=== PATIENT | male | born 1945 | race Caucasian/White ===

== ENCOUNTER 2018-03-11 21:24 | Inpatient (IN) ==
[2018-03-11] MEDS ORDERED: ORPHENADRINE 60 MG/2 ML VIAL IV STA (21:55)
[2018-03-11] MEDS ORDERED: ONDANSETRON 4 MG/2 ML VIAL IV STA (21:55)
[2018-03-11] MEDS ORDERED: ALBUTEROL/IPRATROPIUM 3 ML NEB RESP TX STA (21:55)
[2018-03-11] MEDS ORDERED: KETOROLAC 30 MG/1 ML VIAL IV STA (21:55)
[2018-03-11] MEDS ORDERED: methylPREDNISolone SOD SUC 125 MG/2 ML VIAL IV STA (21:55)
[2018-03-11 22:11] LABS: Basophils % 0.3 % (0.0-0.8); Eosinophils # 0.3 10*3/uL (0.0-0.87); Eosinophils % 4.3 % (0.00-10.9); Hematocrit 38.4 VOL% (42.0-52.0); Hemoglobin 13.3 GM/DL (14.0-18.0); Immature Granulocytes % 0.6 %; Immature Granulocytes Absolute 0.04 #; Lymphocytes # 1.3 10*3/uL (1.4-4.0); Lymphocytes % 18.4 % (21.2-54.2); Mean Corpuscular HGB Conc 34.6 GM/DL (32-36); Mean Corpuscular Hemoglobin 32 PG (27-34); Mean Corpuscular Volume 91.4 FL (87-102); Mean Platelet Volume 11.1 FL (9.6-12.0); Monocytes # 0.5 10*3/uL (0.11-0.8); Monocytes % 6.6 % (1.7-12.7); Neutrophils # 4.9 10*3/uL (1.4-7.4); Neutrophils % 69.8 % (38.7-73.9); Platelet Count 178 T/CUMM (130-400)
[2018-03-11 22:22] LABS: PT Patient Result 10.1 SECS
[2018-03-11 22:31] LABS: Apearance,Urine CLEAR (Clear); Bilirubin,Urine Negative (Negative); Blood, Urine Negative (Negative); Glucose,Urine (UA) Negative (Negative); Ketones,Urine Negative (Negative); Mucus,Urine Occasional /LPF (Occasional); Nitrite,Urine Negative (Negative); Protein,Urine Negative; Urine Color Yellow (Yellow); Urine Specific Gravity 1.013 (1.001-1.035); Urine Urobilinogen < 2.0 EU/DL (0.2-1.0)
[2018-03-11 22:39] LABS: Alanine Aminotransferase 18 U/L (16-61); Albumin 3.5 G/DL (3.4-5.0); Alkaline Phosphatase 69 U/L (45-117); Aspartate Amino Transferase 13 U/L (0-37); Blood Urea Nitrogen 16 MG/DL (7-18); Calcium 8.5 MG/DL (8.5-10.1); Glucose 128 MG/DL (74-106); Osmolality,Calculated 285.1 MOS/KG (273-304); Potassium 3.7 MMOL/L (3.5-5.1); Sodium 142 MMOL/L (136-145); Total Protein 6.7 G/DL (6.4-8.3); Troponin I < 0.015 NG/ML (0.00-0.045)
[2018-03-11] MEDS ORDERED: ENOXAPARIN 100 MG/ML SYRINGE SUBCUT STA (23:01)
[2018-03-12] MEDS ORDERED: HYDROmorphone 2 MG/1 ML VIAL ONE (01:15)
[2018-03-12] MEDS ORDERED: MIDAZOLAM 2 MG/2 ML VIAL ONE (01:15)
[2018-03-12] MEDS ORDERED: ALTEPLASE 2 MG VIAL ONE (01:16)
[2018-03-12] MEDS ORDERED: HEPARIN/NACL 0.9% 2 UNITS/ML 500 ML IV ONE (01:21)
[2018-03-12] MEDS ORDERED: ALTEPLASE 6 MG in SODIUM CHLORIDE 0.9% 120 ML IV SCH ×2 (01:49→02:03)
[2018-03-12] MEDS ORDERED: ALTEPLASE IV ONE ×4 (02:07→02:30)
[2018-03-12] MEDS ORDERED: SODIUM CHLORIDE 0.9% 1,000 ML IV SCH ×2 (02:30)
[2018-03-12] MEDS ORDERED: LORazepam 2 MG/1 ML VIAL IV PRN (02:42)
[2018-03-12 03:37] LABS: Apearance,Urine CLEAR (Clear); Bilirubin,Urine Negative (Negative); Blood, Urine Negative (Negative); Glucose,Urine (UA) Negative (Negative); Ketones,Urine Negative (Negative); Nitrite,Urine Negative (Negative); Protein,Urine Negative; Urine Color Yellow (Yellow); Urine Specific Gravity 1.053 (1.001-1.035); Urine Urobilinogen < 2.0 EU/DL (0.2-1.0); WBC,Urine <1 /HPF (0-6)
[2018-03-12] MEDS ORDERED: MORPHINE 4 MG/1 ML VIAL IV PRN (04:12)
[2018-03-12] MEDS ORDERED: ONDANSETRON 4 MG/2 ML VIAL IV PRN (04:12)
[2018-03-12] MEDS ORDERED: ALBUTEROL 2.5 MG/3 ML NEB RESP TX PRN (04:12)
[2018-03-12] MEDS ORDERED: ACETAMINOPHEN 325 MG TABLET PO PRN (04:12)
[2018-03-12 05:42] LABS: PT Patient Result 10.7 SECS
[2018-03-12 05:44] LABS: PT Patient Result 10.7 SECS; Partial Thromboplastin Time 31.3 SECS (0-40)
[2018-03-12 09:12] LABS: Bilirubin,Total 0.6 MG/DL (0.2-1.0); Calcium 8.1 MG/DL (8.5-10.1); Osmolality,Calculated 280.3 MOS/KG (273-304); Potassium 3.8 MMOL/L (3.5-5.1); Total Protein 5.9 G/DL (6.4-8.3)
[2018-03-12] MEDS: FINASTERIDE 5 MG TABLET PO SCH (11:30)
[2018-03-12] MEDS: LOSARTAN 50 MG TABLET PO SCH (11:31)
[2018-03-12] MEDS: ASPIRIN 325 MG TABLET PO SCH (11:31)
[2018-03-12] MEDS: APIXABAN 5 MG TABLET PO SCH ×2 (15:06→21:24)
[2018-03-12 15:07] LABS: Partial Thromboplastin Time 27.1 SECS (0-40)
[2018-03-12 17:03] LABS: PT Patient Result 10.1 SECS
[2018-03-13 03:25] LABS: Basophils % 0.3 % (0.0-0.8); Eosinophils # 0.3 10*3/uL (0.0-0.87); Eosinophils % 5.1 % (0.00-10.9); Hematocrit 35.5 VOL% (42.0-52.0); Hemoglobin 11.6 GM/DL (14.0-18.0); Immature Granulocytes % 0.7 %; Immature Granulocytes Absolute 0.05 #; Lymphocytes # 1.1 10*3/uL (1.4-4.0); Lymphocytes % 16.4 % (21.2-54.2); Mean Corpuscular HGB Conc 32.7 GM/DL (32-36); Mean Corpuscular Hemoglobin 31 PG (27-34); Mean Corpuscular Volume 95.2 FL (87-102); Mean Platelet Volume 10.9 FL (9.6-12.0); Monocytes # 0.5 10*3/uL (0.11-0.8); Monocytes % 7.5 % (1.7-12.7); Neutrophils # 4.7 10*3/uL (1.4-7.4); Platelet Count 155 T/CUMM (130-400); Red Blood Count 3.73 MC/CUMM (3.8-5.5); Red Cell Distribution Width 12.3 % (9.3-17.3); White Blood Count 6.7 T/CUMM (4-12)
[2018-03-13 03:36] LABS: Partial Thromboplastin Time 30.2 SECS (0-40)
[2018-03-13 03:45] LABS: Calcium 8.5 MG/DL (8.5-10.1); Osmolality,Calculated 278.4 MOS/KG (273-304); Potassium 4.2 MMOL/L (3.5-5.1)
[2018-03-13 06:08] VITALS: BP 164/81
[2018-03-13] MEDS: LOSARTAN 50 MG TABLET PO SCH (08:00)
[2018-03-13] MEDS: FINASTERIDE 5 MG TABLET PO SCH (08:00)
[2018-03-13] MEDS: ASPIRIN 325 MG TABLET PO SCH (08:05)
[2018-03-13] MEDS: APIXABAN 5 MG TABLET PO SCH (08:05)
[2018-03-13] MEDS ORDERED: PANTOPRAZOLE 20 MG TABLET PO SCH (10:00)
[2018-03-13] MEDS ORDERED: MULTIVITAMIN (CENTRUM) TABLET PO SCH (10:00)
[2018-03-13] MEDS ORDERED: MONTELUKAST GRANULES 4 MG PACK PO SCH (21:00)
[2018-03-13] MEDS ORDERED: DOXAZOSIN 1 MG TABLET PO SCH (21:00)
[2018-03-13] MEDS ORDERED: BUDESONIDE/FORMOTEROL 80-4.5 INHALER 6.9 GM INH SCH (21:00)
[2018-03-14] MEDS ORDERED: CETIRIZINE 5 MG TABLET PO SCH (09:00)
[2018-03-14] MEDS ORDERED: POTASSIUM CHLORIDE 20 MEQ TABLET PO SCH (09:00)
== END 2018-03-13 11:29 | disposition home or self-care (01) | DRG 176 ==
LOC: N.ED 21:24 → N.EDINP 03-12 00:37 → N.CC 03-12 00:59 → N.CL 03-12 01:06 → N.CC 03-12 01:12 → SUATTDRO 03-12 02:36
PROVIDERS: ADMIT Internal Medicine; ATTEND Internal Medicine Geriatric Medicine

== ENCOUNTER 2019-03-08 12:26 | Observation (INO) ==
[2019-03-08 13:35] LABS: Basophils % 0.5 % (0.0-0.8); Eosinophils # 0.1 10*3/uL (0.0-0.87); Eosinophils % 1.4 % (0.00-10.9); Hematocrit 42.7 VOL% (42.0-52.0); Hemoglobin 14.5 GM/DL (14.0-18.0); Immature Granulocytes % 0.5 %; Immature Granulocytes Absolute 0.03 #; Lymphocytes # 0.9 10*3/uL (1.4-4.0); Lymphocytes % 14.6 % (21.2-54.2); Mean Corpuscular Volume 95.7 FL (87-102); Mean Platelet Volume 10.8 FL (9.6-12.0); Monocytes % 7.8 % (1.7-12.7); Neutrophils % 75.2 % (38.7-73.9); Platelet Count 154 T/CUMM (130-400); Red Blood Count 4.46 MC/CUMM (3.8-5.5); Red Cell Distribution Width 12.7 % (9.3-17.3); White Blood Count 6.4 T/CUMM (4-12)
[2019-03-08 13:47] LABS: PT Patient Result 10.5 SECS (9.6-12.2)
[2019-03-08 14:05] LABS: Albumin 4.1 G/DL (3.4-5.0); Bilirubin,Total 0.8 MG/DL (0.2-1.0); Calcium 9.9 MG/DL (8.5-10.1); Total Protein 6.7 G/DL (6.4-8.3)
[2019-03-08] MEDS ORDERED: DILTIAZEM 50 MG/10 ML VIAL IV STA (14:21)
[2019-03-08] MEDS ORDERED: DILTIAZEM INJ 100 MG in SODIUM CHLORIDE 0.9% 100 ML IV SCH (14:30)
[2019-03-08] MEDS: dilTIAZem Drip 125 MG/125 ML PREMIX IV SCH (16:00)
[2019-03-08] MEDS ORDERED: ONDANSETRON 4 MG/2 ML VIAL IV PRN (17:35)
[2019-03-08] MEDS ORDERED: ACETAMINOPHEN 325 MG TABLET PO PRN (17:35)
[2019-03-08] MEDS ORDERED: SODIUM CHLORIDE 0.9% 1,000 ML IV SCH (18:00)
[2019-03-08 19:03] LABS: Troponin I < 0.015 NG/ML (0.00-0.045)
[2019-03-08] MEDS ORDERED: DOXAZOSIN 1 MG TABLET PO SCH (21:00)
[2019-03-08] MEDS ORDERED: DILTIAZEM 90 MG TABLET PO SCH (21:00)
[2019-03-08] MEDS ORDERED: MONTELUKAST 10 MG TABLET PO SCH (21:00)
[2019-03-08] MEDS: TIMOLOL 0.25% OPH SOLN 5 ML BOTTLE BOTH EYES SCH (21:31)
[2019-03-08] MEDS: APIXABAN 5 MG TABLET PO SCH (21:31)
[2019-03-08] MEDS: MAGNESIUM CHLORIDE 64 MG TABLET PO SCH (21:32)
[2019-03-08] MEDS: BUDESONIDE/FORMOTEROL 160-4.5 INHALER 6 GM INH SCH (22:45)
[2019-03-08 22:53] LABS: Apearance,Urine CLEAR (Clear); Bilirubin,Urine Negative (Negative); Blood, Urine Negative (Negative); Glucose,Urine (UA) Negative (Negative); Ketones,Urine 20 mg/dL (Negative); Mucus,Urine Occasional /LPF (Occasional); Nitrite,Urine Negative (Negative); Protein,Urine Negative; RBC,Urine 8 /HPF (0-4); Urine Color Yellow (Yellow); Urine Specific Gravity 1.016 (1.001-1.035); Urine Urobilinogen < 2.0 EU/DL (0.2-1.0); WBC,Urine 1 /HPF (0-6)
[2019-03-08 23:07] LABS: Barbiturates Screen,Urine Negative (Negative); Benzodiazepines Screen,Urine Negative (Negative); Cannabinoid Screen,Urine Negative (Negative); Opiate Screen,Urine Negative (Negative); Phencyclidine Screen,Urine Negative (Negative)
[2019-03-09] MEDS: dilTIAZem Drip 125 MG/125 ML PREMIX IV SCH (00:15)
[2019-03-09 00:37] LABS: Troponin I < 0.015 NG/ML (0.00-0.045)
[2019-03-09 06:05] LABS: Basophils % 0.6 % (0.0-0.8); Eosinophils # 0.3 10*3/uL (0.0-0.87); Eosinophils % 3.7 % (0.00-10.9); Hematocrit 42.2 VOL% (42.0-52.0); Immature Granulocytes % 0.4 %; Immature Granulocytes Absolute 0.03 #; Lymphocytes # 1.6 10*3/uL (1.4-4.0); Lymphocytes % 22.5 % (21.2-54.2); Mean Corpuscular HGB Conc 33.2 GM/DL (32-36); Mean Corpuscular Volume 97.2 FL (87-102); Mean Platelet Volume 11.6 FL (9.6-12.0); Monocytes % 8.7 % (1.7-12.7); Neutrophils % 64.1 % (38.7-73.9); Platelet Count 154 T/CUMM (130-400); Red Blood Count 4.34 MC/CUMM (3.8-5.5); Red Cell Distribution Width 12.8 % (9.3-17.3)
[2019-03-09 06:44] LABS: Calcium 9.3 MG/DL (8.5-10.1); Osmolality,Calculated 286.8 MOS/KG (273-304); Risk Ratio 3.7
[2019-03-09] MEDS: MAGNESIUM CHLORIDE 64 MG TABLET PO SCH (08:41)
[2019-03-09] MEDS: APIXABAN 5 MG TABLET PO SCH (08:42)
[2019-03-09] MEDS: TIMOLOL 0.25% OPH SOLN 5 ML BOTTLE BOTH EYES SCH (08:42)
[2019-03-09] MEDS: BUDESONIDE/FORMOTEROL 160-4.5 INHALER 6 GM INH SCH (08:42)
[2019-03-09] MEDS ORDERED: POTASSIUM CHLORIDE 20 MEQ TABLET PO SCH (09:00)
[2019-03-09] MEDS ORDERED: ASPIRIN CHEW 81 MG TABLET PO SCH (09:00)
[2019-03-09] MEDS ORDERED: DILTIAZEM CD 240 MG CAPSULE PO SCH (09:00)
[2019-03-09] MEDS ORDERED: PANTOPRAZOLE 40 MG TABLET PO SCH (09:00)
[2019-03-09] MEDS ORDERED: FINASTERIDE 5 MG TABLET PO SCH (09:00)
[2019-03-09] MEDS ORDERED: ASCORBIC ACID 500 MG TABLET PO SCH (09:00)
[2019-03-09] MEDS ORDERED: MAGNESIUM SULF RIDER 2 GM in PREMIX 1 EACH IV ONE (09:22)
[2019-03-09 11:32] VITALS: BP 128/77
== END 2019-03-09 13:25 | disposition home or self-care (01) ==
LOC: N.EDINP 12:26 → N.ED 12:26 → N.TELEN 16:50
PROVIDERS: ADMIT Internal Medicine; ATTEND Internal Medicine

== ENCOUNTER 2020-05-18 02:50 | Observation (INO) ==
[2020-05-18 03:05] LABS: Basophils % 0.3 % (0.0-0.8); Eosinophils # 0.1 10*3/uL (0.0-0.87); Eosinophils % 1.1 % (0.00-10.9); Hematocrit 39.5 VOL% (42.0-52.0); Hemoglobin 13.6 GM/DL (14.0-18.0); Immature Granulocytes % 1.7 %; Immature Granulocytes Absolute 0.12 #; Lymphocytes # 1.2 10*3/uL (1.4-4.0); Lymphocytes % 16.4 % (21.2-54.2); Mean Corpuscular HGB Conc 34.4 GM/DL (32-36); Mean Corpuscular Volume 96.1 FL (87-102); Mean Platelet Volume 10.9 FL (9.6-12.0); Monocytes # 0.6 10*3/uL (0.11-0.8); Monocytes % 7.6 % (1.7-12.7); Neutrophils % 72.9 % (38.7-73.9); Platelet Count 152 T/CUMM (130-400); Red Blood Count 4.11 MC/CUMM (3.8-5.5); Red Cell Distribution Width 12.2 % (9.3-17.3); White Blood Count 7.2 T/CUMM (4-12)
[2020-05-18 03:24] LABS: Albumin 3.4 G/DL (3.4-5.0); Bilirubin,Total 0.4 MG/DL (0.2-1.0); Calcium 8.8 MG/DL (8.5-10.1); Osmolality,Calculated 281.3 MOS/KG (273-304); Potassium 3.9 MMOL/L (3.5-5.1); Total Protein 6.7 G/DL (6.4-8.3)
[2020-05-18] MEDS ORDERED: ONDANSETRON 4 MG/2 ML VIAL IV PRN (04:03)
[2020-05-18] MEDS ORDERED: DEXTROSE 50% 25 GM/50 ML VIAL IV PRN (04:03)
[2020-05-18] MEDS ORDERED: ACETAMINOPHEN 325 MG TABLET PO PRN (04:03)
[2020-05-18] MEDS ORDERED: GLUCAGON 1 MG VIAL IM PRN (04:03)
[2020-05-18] MEDS ORDERED: ALBUTEROL 2.5 MG/3 ML NEB RESP TX PRN (04:12)
[2020-05-18] MEDS ORDERED: METHOCARBAMOL 750 MG TABLET PO PRN (04:12)
[2020-05-18] MEDS ORDERED: ENOXAPARIN 40 MG/0.4 ML SYRINGE SUBCUT SCH (04:30)
[2020-05-18 06:59] LABS: Risk Ratio 2.59; VLDL Cholesterol 24.8 MG/DL
[2020-05-18] MEDS ORDERED: POTASSIUM CHLORIDE 20 MEQ TABLET PO SCH (09:00)
[2020-05-18] MEDS ORDERED: DILTIAZEM CD 300 MG CAPSULE PO SCH (09:00)
[2020-05-18] MEDS ORDERED: CETIRIZINE 10 MG TABLET PO SCH (09:00)
[2020-05-18] MEDS ORDERED: MULTIVITAMIN (CENTRUM) TABLET PO SCH (09:00)
[2020-05-18] MEDS ORDERED: APIXABAN 5 MG TABLET PO SCH (09:00)
[2020-05-18] MEDS ORDERED: FINASTERIDE 5 MG TABLET PO SCH (09:00)
[2020-05-18] MEDS ORDERED: AMIODARONE 200 MG TABLET PO SCH (09:00)
[2020-05-18] MEDS ORDERED: CARBIDOPA/LEVODOPA CR 25-100 MG TABLET PO SCH (09:00)
[2020-05-18] MEDS ORDERED: ASCORBIC ACID 500 MG TABLET PO SCH (09:00)
[2020-05-18] MEDS ORDERED: MAGNESIUM OXIDE 400 MG TABLET PO SCH (09:00)
[2020-05-18] MEDS ORDERED: CHOLECALCIFEROL 1,000 UNIT TABLET PO SCH (09:00)
[2020-05-18] MEDS ORDERED: LOSARTAN 25 MG TABLET PO SCH (09:00)
[2020-05-18] MEDS ORDERED: THYROID 60 MG TABLET PO SCH (09:00)
[2020-05-18] MEDS ORDERED: PANTOPRAZOLE 40 MG TABLET PO SCH (09:00)
[2020-05-18] MEDS ORDERED: ASPIRIN EC 325 MG TABLET PO SCH (09:00)
[2020-05-18] MEDS ORDERED: BUDESONIDE/FORMOTEROL 160-4.5 INHALER 6 GM INH SCH (09:00)
[2020-05-18 12:12] VITALS: BP 160/91
[2020-05-18] MEDS ORDERED: MONTELUKAST 10 MG TABLET PO SCH (21:00)
[2020-05-19] MEDS ORDERED: DOXAZOSIN 2 MG TABLET PO SCH (21:00)
== END 2020-05-18 13:31 | disposition home or self-care (01) ==
LOC: EDBD → EDUNIT# → N.EDINP 02:50 → N.ED 02:50 → SUATTDRO 04:03 → N.EDINP 13:30
PROVIDERS: ADMIT Family Medicine; ATTEND Family Medicine

== ENCOUNTER 2020-09-30 18:56 | Observation (INO) ==
[2020-09-30 21:14] LABS: Basophils % 0.3 % (0.0-0.8); Eosinophils # 0.2 10*3/uL (0.0-0.87); Eosinophils % 2.8 % (0.00-10.9); Hematocrit 33.4 VOL% (42.0-52.0); Immature Granulocytes % 1.5 %; Lymphocytes # 0.9 10*3/uL (1.4-4.0); Lymphocytes % 12.9 % (21.2-54.2); Mean Corpuscular HGB Conc 32.9 GM/DL (32-36); Mean Corpuscular Volume 96.3 FL (87-102); Mean Platelet Volume 10.4 FL (9.6-12.0); Monocytes % 6.7 % (1.7-12.7); Neutrophils % 75.8 % (38.7-73.9); Platelet Count 185 T/CUMM (130-400); Red Blood Count 3.47 MC/CUMM (3.8-5.5); Red Cell Distribution Width 13.1 % (9.3-17.3); White Blood Count 6.8 T/CUMM (4-12)
[2020-09-30 21:24] LABS: PT Patient Result 11.3 SECS (10.5-12.0); Partial Thromboplastin Time 23.5 SECS (23.9-33.8)
[2020-09-30] MEDS ORDERED: SODIUM CHLORIDE 0.9% 1,000 ML IV STA (21:32)
[2020-09-30 21:33] LABS: Albumin 2.8 G/DL (3.4-5.0); Bilirubin,Total 0.5 MG/DL (0.2-1.0); Calcium 8.7 MG/DL (8.5-10.1); Osmolality,Calculated 287.7 MOS/KG (273-304); Potassium 3.8 MMOL/L (3.5-5.1); Total Protein 5.9 G/DL (6.4-8.2)
[2020-09-30 22:49] LABS: Platelet Estimate Normal
[2020-09-30 22:50] LABS: Hypochromasia 1+
[2020-09-30] MEDS ORDERED: GLUCAGON 1 MG VIAL IM PRN (23:50)
[2020-09-30] MEDS ORDERED: DEXTROSE 50% 25 GM/50 ML VIAL IV PRN (23:50)
[2020-09-30] MEDS ORDERED: ONDANSETRON 4 MG/2 ML VIAL IV PRN (23:51)
[2020-09-30] MEDS ORDERED: ACETAMINOPHEN 325 MG TABLET PO PRN (23:51)
[2020-10-01] MEDS ORDERED: NITROGLYCERIN SL 0.4 MG TABLET SL PRN (01:31)
[2020-10-01] MEDS: BUDESONIDE/FORMOTEROL 160-4.5 INHALER 6 GM INH SCH ×2 (01:40→12:33)
[2020-10-01] MEDS ORDERED: ALBUTEROL 2.5 MG/3 ML NEB RESP TX PRN (01:41)
[2020-10-01] MEDS ORDERED: METHOCARBAMOL 500 MG TABLET PO PRN (01:43)
[2020-10-01] MEDS ORDERED: MONTELUKAST 10 MG TABLET ONE (01:52)
[2020-10-01] MEDS: CARBIDOPA/LEVODOPA CR 25-100 MG TABLET PO SCH ×2 (01:55→12:28)
[2020-10-01] MEDS: ASCORBIC ACID 500 MG TABLET PO SCH ×2 (01:55→12:23)
[2020-10-01] MEDS ORDERED: MONTELUKAST 10 MG TABLET PO SCH (02:00)
[2020-10-01] MEDS ORDERED: LOSARTAN 25 MG TABLET PO SCH (02:00)
[2020-10-01 03:47] LABS: Hematocrit 29.8 VOL% (42.0-52.0); Hemoglobin 9.8 GM/DL (14.0-18.0)
[2020-10-01 06:06] LABS: Basophils % 0.5 % (0.0-0.8); Eosinophils # 0.2 10*3/uL (0.0-0.87); Eosinophils % 3.1 % (0.00-10.9); Hematocrit 29.9 VOL% (42.0-52.0); Hemoglobin 9.7 GM/DL (14.0-18.0); Immature Granulocytes % 1.2 %; Immature Granulocytes Absolute 0.07 #; Mean Corpuscular HGB Conc 32.4 GM/DL (32-36); Mean Corpuscular Volume 97.1 FL (87-102); Mean Platelet Volume 10.6 FL (9.6-12.0); Monocytes % 6.2 % (1.7-12.7); Platelet Count 166 T/CUMM (130-400); Red Blood Count 3.08 MC/CUMM (3.8-5.5); Red Cell Distribution Width 13.2 % (9.3-17.3); White Blood Count 5.8 T/CUMM (4-12)
[2020-10-01 06:16] LABS: Albumin 2.7 G/DL (3.4-5.0); Bilirubin,Total 0.9 MG/DL (0.2-1.0); Calcium 8.6 MG/DL (8.5-10.1); Potassium 3.4 MMOL/L (3.5-5.1); Total Protein 5.3 G/DL (6.4-8.2)
[2020-10-01 06:54] LABS: Hypochromasia 1+; Microcytosis 1+; Platelet Estimate Adequate
[2020-10-01] MEDS ORDERED: CETIRIZINE 10 MG TABLET PO SCH (09:00)
[2020-10-01] MEDS ORDERED: POTASSIUM CHLORIDE 20 MEQ TABLET PO SCH (09:00)
[2020-10-01] MEDS ORDERED: MULTIVITAMIN (CENTRUM) TABLET PO SCH (09:00)
[2020-10-01] MEDS ORDERED: DILTIAZEM CD 300 MG CAPSULE PO SCH (09:00)
[2020-10-01] MEDS ORDERED: AMIODARONE 200 MG TABLET PO SCH (09:00)
[2020-10-01] MEDS ORDERED: THYROID 30 MG PO SCH (09:00)
[2020-10-01] MEDS ORDERED: FINASTERIDE 5 MG TABLET PO SCH (09:00)
[2020-10-01] MEDS ORDERED: MAGNESIUM OXIDE 400 MG TABLET PO SCH (09:00)
[2020-10-01] MEDS ORDERED: PANTOPRAZOLE 40 MG TABLET PO SCH (09:00)
[2020-10-01] MEDS ORDERED: CHOLECALCIFEROL 1,000 UNIT TABLET PO SCH (09:00)
[2020-10-01 09:05] LABS: Hematocrit 30.3 VOL% (42.0-52.0); Hemoglobin 9.8 GM/DL (14.0-18.0)
[2020-10-01 15:16] LABS: Hematocrit 30.5 VOL% (42.0-52.0); Hemoglobin 10.3 GM/DL (14.0-18.0)
[2020-10-01 15:41] VITALS: BP 148/79
[2020-10-01] MEDS ORDERED: DOXAZOSIN 2 MG TABLET PO SCH (21:00)
== END 2020-10-01 20:25 | disposition home or self-care (01) ==
LOC: N.EDINP 18:56 → N.ED 18:56 → N.4E 10-01 07:05
PROVIDERS: ADMIT Internal Medicine; ATTEND Internal Medicine

== ENCOUNTER 2020-10-27 06:11 | Inpatient (IN) ==
[2020-10-21 11:44] LABS: Basophils % 0.8 % (0.0-0.8); Eosinophils # 0.1 10*3/uL (0.0-0.87); Eosinophils % 2.5 % (0.00-10.9); Hematocrit 34.9 VOL% (42.0-52.0); Hemoglobin 11.2 GM/DL (14.0-18.0); Immature Granulocytes % 0.8 %; Immature Granulocytes Absolute 0.04 #; Lymphocytes # 1.2 10*3/uL (1.4-4.0); Lymphocytes % 24.8 % (21.2-54.2); Mean Corpuscular HGB Conc 32.1 GM/DL (32-36); Mean Corpuscular Volume 95.6 FL (87-102); Mean Platelet Volume 11.4 FL (9.6-12.0); Monocytes % 8.8 % (1.7-12.7); Neutrophils % 62.3 % (38.7-73.9); Platelet Count 182 T/CUMM (130-400); Red Blood Count 3.65 MC/CUMM (3.8-5.5); Red Cell Distribution Width 13.2 % (9.3-17.3); White Blood Count 4.8 T/CUMM (4-12)
[2020-10-21 11:56] LABS: Albumin 3.5 G/DL (3.4-5.0); Bilirubin,Total 0.4 MG/DL (0.2-1.0); Calcium 9.5 MG/DL (8.5-10.1); Osmolality,Calculated 280.1 MOS/KG (273-304); PT Patient Result 10.9 SECS (10.5-12.0); Partial Thromboplastin Time 23.3 SECS (23.9-33.8); Total Protein 6.4 G/DL (6.4-8.2)
[2020-10-27] MEDS ORDERED: BUPIVACAINE MPF 0.25% 30 ML VIAL ONE ×2 (06:20→09:07)
[2020-10-27] MEDS ORDERED: ACETAMINOPHEN 500 MG TABLET PO STA (06:20)
[2020-10-27] MEDS ORDERED: TISSUE ADHESIVE 1 EACH APPLICATOR TOP ONE (06:20)
[2020-10-27] MEDS ORDERED: INDOCYANINE GREEN 25 MG VIAL IV ONE (06:21)
[2020-10-27] MEDS ORDERED: FAMOTIDINE 20 MG TABLET PO STA (06:21)
[2020-10-27] MEDS ORDERED: LIDOCAINE 1%/EPI INJ 20 ML VIAL ONE (06:21)
[2020-10-27] MEDS ORDERED: cefOXitin 1,000 MG in SODIUM CHLORIDE 0.9% 100 ML IV ONE (06:30)
[2020-10-27] MEDS ORDERED: fentaNYL 100 MCG/2 ML VIAL ONE ×2 (06:38→07:58)
[2020-10-27] MEDS ORDERED: LIDOCAINE 2% 5 ML VIAL ONE (06:38)
[2020-10-27] MEDS ORDERED: ONDANSETRON 4 MG/2 ML VIAL ONE (06:38)
[2020-10-27] MEDS ORDERED: ROCURONIUM 50 MG/5 ML VIAL IV ONE ×2 (06:38→08:36)
[2020-10-27] MEDS ORDERED: propofoL 200 MG/20 ML VIAL IV ONE (06:38)
[2020-10-27] MEDS ORDERED: MIDAZOLAM 2 MG/2 ML VIAL ONE (06:38)
[2020-10-27] MEDS: LACTATED RINGERS 1,000 ML IV SCH ×2 (06:44→12:00)
[2020-10-27] MEDS ORDERED: ePHEDrine 50 MG/ML VIAL ONE (07:16)
[2020-10-27] MEDS ORDERED: DESFLURANE 1 UNIT/15 MINUTE INH ONE ×2 (07:58→10:40)
[2020-10-27] MEDS ORDERED: GLYCOPYRROLATE 0.4 MG/2 ML VIAL ONE (08:04)
[2020-10-27] MEDS ORDERED: NEOSTIGMINE 10 MG/10 ML VIAL ONE (08:04)
[2020-10-27] MEDS ORDERED: PHENYLEPHRINE 1 MG/10 ML SYRINGE IV ONE (08:48)
[2020-10-27] MEDS ORDERED: MORPHINE 4 MG/1 ML VIAL IV PRN (10:16)
[2020-10-27] MEDS ORDERED: NITROGLYCERIN SL 0.4 MG TABLET SL PRN (10:19)
[2020-10-27] MEDS ORDERED: ONDANSETRON 4 MG/2 ML VIAL IV PRN (10:42)
[2020-10-27 10:43] LABS: Bilirubin,Urine Negative (Negative); Blood, Urine Negative (Negative); Glucose,Urine (UA) Negative (Negative); Hyaline Casts,Urine 1 /LPF (0-3); Ketones,Urine 5 mg/dL (Negative); Mucus,Urine Occasional /LPF (Occasional); Nitrite,Urine Negative (Negative); Protein,Urine Negative; RBC,Urine <1 /HPF (0-4); Urine Appearance CLEAR (Clear); Urine Color Yellow (Yellow); Urine Specific Gravity 1.015 (1.001-1.035)
[2020-10-27] MEDS: HYDROmorphone 2 MG/1 ML VIAL IV PRN ×4 (10:46→11:15)
[2020-10-27] MEDS ORDERED: LORazepam 2 MG/1 ML VIAL IV ONE (11:43)
[2020-10-27] MEDS ORDERED: LORazepam 2 MG/1 ML VIAL ONE (11:45)
[2020-10-27 13:32] LABS: Hematocrit 38.6 VOL% (42.0-52.0)
[2020-10-27] MEDS: DEXTROSE 5% LACTATED RINGERS 1,000 ML IV SCH (14:34)
[2020-10-27] MEDS ORDERED: CARBIDOPA/LEVODOPA 25-100 MG TABLET PO SCH ×2 (16:00→21:00)
[2020-10-27 19:01] LABS: Hematocrit 37.9 VOL% (42.0-52.0); Hemoglobin 11.7 GM/DL (14.0-18.0)
[2020-10-27] MEDS: ALBUTEROL 2.5 MG/3 ML NEB RESP TX SCH (19:06)
[2020-10-27] MEDS: LOSARTAN 25 MG TABLET PO SCH (21:56)
[2020-10-27] MEDS: DOXAZOSIN 1 MG TABLET PO SCH (21:56)
[2020-10-27] MEDS: MAGNESIUM OXIDE 400 MG TABLET PO SCH (21:57)
[2020-10-27] MEDS: FLUTICASONE/SALMETEROL 250-50 DISKUS 14 DOSE INH SCH (21:58)
[2020-10-27] MEDS: DORZOLAMIDE/TIMOLOL OPH SOLN 10 ML BOTTLE BOTH EYES SCH (21:59)
[2020-10-27] MEDS: MONTELUKAST 10 MG TABLET PO SCH (22:00)
[2020-10-27] MEDS: FINASTERIDE 5 MG TABLET PO SCH (22:00)
[2020-10-27] MEDS: CARBIDOPA/LEVODOPA CR 25-100 MG TABLET PO SCH (22:01)
[2020-10-28] MEDS: DEXTROSE 5% LACTATED RINGERS 1,000 ML IV SCH ×3 (00:57→14:51)
[2020-10-28] MEDS: METHOCARBAMOL 500 MG TABLET PO PRN ×2 (02:20→20:55)
[2020-10-28 02:50] LABS: Basophils % 0.2 % (0.0-0.8); Hematocrit 35.1 VOL% (42.0-52.0); Immature Granulocytes % 0.2 %; Immature Granulocytes Absolute 0.02 #; Lymphocytes # 0.4 10*3/uL (1.4-4.0); Lymphocytes % 3.6 % (21.2-54.2); Mean Corpuscular HGB Conc 31.3 GM/DL (32-36); Mean Corpuscular Volume 94.4 FL (87-102); Mean Platelet Volume 11.4 FL (9.6-12.0); Monocytes % 6.3 % (1.7-12.7); Neutrophils % 89.7 % (38.7-73.9); Platelet Count 146 T/CUMM (130-400); Red Blood Count 3.72 MC/CUMM (3.8-5.5); Red Cell Distribution Width 13.3 % (9.3-17.3); White Blood Count 9.7 T/CUMM (4-12)
[2020-10-28 02:51] LABS: Hematocrit 34.9 VOL% (42.0-52.0); Hemoglobin 11.1 GM/DL (14.0-18.0)
[2020-10-28 03:07] LABS: Calcium 8.4 MG/DL (8.5-10.1); Osmolality,Calculated 277.7 MOS/KG (273-304); Potassium 3.9 MMOL/L (3.5-5.1)
[2020-10-28 03:16] LABS: Band Neutrophils 8 % (0-10); Lymphocytes 7 % (20-55); Platelet Estimate Normal; Segmented Neutrophils 81 % (50-85); Total Cells Counted 100
[2020-10-28] MEDS: ALBUTEROL 2.5 MG/3 ML NEB RESP TX SCH ×2 (07:00→19:15)
[2020-10-28] MEDS: THYROID 60 MG TABLET PO SCH (09:47)
[2020-10-28] MEDS: ASPIRIN CHEW 81 MG TABLET PO SCH (09:47)
[2020-10-28] MEDS: CARBIDOPA/LEVODOPA CR 25-100 MG TABLET PO SCH ×4 (09:48→23:03)
[2020-10-28] MEDS: CETIRIZINE 10 MG TABLET PO SCH (09:48)
[2020-10-28] MEDS: PANTOPRAZOLE 40 MG TABLET PO SCH (09:48)
[2020-10-28] MEDS: DILTIAZEM CD 300 MG CAPSULE PO SCH (09:48)
[2020-10-28] MEDS: POTASSIUM CHLORIDE 20 MEQ TABLET PO SCH (09:48)
[2020-10-28] MEDS: AMIODARONE 200 MG TABLET PO SCH (09:49)
[2020-10-28] MEDS: MAGNESIUM OXIDE 400 MG TABLET PO SCH ×2 (09:49→20:56)
[2020-10-28] MEDS: DORZOLAMIDE/TIMOLOL OPH SOLN 10 ML BOTTLE BOTH EYES SCH ×2 (09:49→20:59)
[2020-10-28] MEDS: FLUTICASONE/SALMETEROL 250-50 DISKUS 14 DOSE INH SCH ×2 (09:49→20:59)
[2020-10-28] MEDS ORDERED: PHENOL 1.4% THROAT SPRAY 177 ML BOTTLE PO PRN (10:05)
[2020-10-28] MEDS: APIXABAN 5 MG TABLET PO SCH (20:55)
[2020-10-28] MEDS: DOXAZOSIN 1 MG TABLET PO SCH (20:56)
[2020-10-28] MEDS: MONTELUKAST 10 MG TABLET PO SCH (20:56)
[2020-10-28] MEDS: FINASTERIDE 5 MG TABLET PO SCH (20:56)
[2020-10-28] MEDS: LOSARTAN 25 MG TABLET PO SCH (20:58)
[2020-10-29] MEDS: DEXTROSE 5% LACTATED RINGERS 1,000 ML IV SCH (03:44)
[2020-10-29 04:45] LABS: Basophils % 0.1 % (0.0-0.8); Eosinophils % 0.5 % (0.00-10.9); Hematocrit 31.6 VOL% (42.0-52.0); Hemoglobin 10.5 GM/DL (14.0-18.0); Immature Granulocytes % 1.3 %; Immature Granulocytes Absolute 0.11 #; Lymphocytes # 0.6 10*3/uL (1.4-4.0); Lymphocytes % 6.5 % (21.2-54.2); Mean Corpuscular HGB Conc 33.2 GM/DL (32-36); Mean Corpuscular Volume 91.9 FL (87-102); Mean Platelet Volume 11.6 FL (9.6-12.0); Monocytes % 4.9 % (1.7-12.7); Neutrophils % 86.7 % (38.7-73.9); Platelet Count 128 T/CUMM (130-400); Red Blood Count 3.44 MC/CUMM (3.8-5.5); Red Cell Distribution Width 13.3 % (9.3-17.3); White Blood Count 8.7 T/CUMM (4-12)
[2020-10-29 05:01] LABS: Calcium 8.9 MG/DL (8.5-10.1); Osmolality,Calculated 270.1 MOS/KG (273-304); Potassium 3.6 MMOL/L (3.5-5.1)
[2020-10-29 05:08] LABS: Hypochromasia 1+; Lymphocytes 5 % (20-55); Microcytosis 1+; Segmented Neutrophils 91 % (50-85); Total Cells Counted 100
[2020-10-29] MEDS: ALBUTEROL 2.5 MG/3 ML NEB RESP TX SCH ×3 (07:20→19:05)
[2020-10-29] MEDS: POTASSIUM CHLORIDE 20 MEQ TABLET PO SCH (08:59)
[2020-10-29] MEDS: MAGNESIUM OXIDE 400 MG TABLET PO SCH ×2 (08:59→22:20)
[2020-10-29] MEDS: PANTOPRAZOLE 40 MG TABLET PO SCH (08:59)
[2020-10-29] MEDS: THYROID 60 MG TABLET PO SCH (09:00)
[2020-10-29] MEDS: ASPIRIN CHEW 81 MG TABLET PO SCH (09:00)
[2020-10-29] MEDS: DILTIAZEM CD 300 MG CAPSULE PO SCH (09:00)
[2020-10-29] MEDS: AMIODARONE 200 MG TABLET PO SCH (09:01)
[2020-10-29] MEDS: APIXABAN 5 MG TABLET PO SCH ×2 (09:01→22:20)
[2020-10-29] MEDS: DORZOLAMIDE/TIMOLOL OPH SOLN 10 ML BOTTLE BOTH EYES SCH ×2 (09:01→22:23)
[2020-10-29] MEDS: CETIRIZINE 10 MG TABLET PO SCH (09:01)
[2020-10-29] MEDS: FLUTICASONE/SALMETEROL 250-50 DISKUS 14 DOSE INH SCH ×2 (09:02→22:23)
[2020-10-29] MEDS: CARBIDOPA/LEVODOPA CR 25-100 MG TABLET PO SCH ×3 (09:03→22:20)
[2020-10-29] MEDS ORDERED: FUROSEMIDE 20 MG/2 ML VIAL IV ONE (09:08)
[2020-10-29] MEDS ORDERED: MAGNESIUM SULF RIDER 2 GM/50 ML PREMIX IV PRN (10:13)
[2020-10-29] MEDS ORDERED: MAGNESIUM SULF RIDER 4 GM/100 ML PREMIX IV PRN (10:13)
[2020-10-29] MEDS: ONDANSETRON 4 MG/2 ML VIAL IV PRN ×2 (14:17→18:54)
[2020-10-29] MEDS: LOSARTAN 25 MG TABLET PO SCH (22:20)
[2020-10-29] MEDS: FINASTERIDE 5 MG TABLET PO SCH (22:20)
[2020-10-29] MEDS: DOXAZOSIN 1 MG TABLET PO SCH (22:20)
[2020-10-29] MEDS: MONTELUKAST 10 MG TABLET PO SCH (22:20)
[2020-10-30] MEDS: ALBUTEROL 2.5 MG/3 ML NEB RESP TX SCH ×4 (00:50→21:30)
[2020-10-30 05:13] LABS: Basophils % 0.2 % (0.0-0.8); Eosinophils # 0.1 10*3/uL (0.0-0.87); Eosinophils % 1.1 % (0.00-10.9); Hematocrit 31.2 VOL% (42.0-52.0); Hemoglobin 10.1 GM/DL (14.0-18.0); Immature Granulocytes % 1.1 %; Immature Granulocytes Absolute 0.09 #; Lymphocytes # 0.6 10*3/uL (1.4-4.0); Lymphocytes % 7.1 % (21.2-54.2); Mean Corpuscular HGB Conc 32.4 GM/DL (32-36); Mean Platelet Volume 11.5 FL (9.6-12.0); Monocytes % 5.1 % (1.7-12.7); Neutrophils % 85.4 % (38.7-73.9); Platelet Count 143 T/CUMM (130-400); Red Blood Count 3.39 MC/CUMM (3.8-5.5); Red Cell Distribution Width 13.2 % (9.3-17.3); White Blood Count 8.4 T/CUMM (4-12)
[2020-10-30 05:46] LABS: Calcium 9.1 MG/DL (8.5-10.1); Osmolality,Calculated 274.8 MOS/KG (273-304); Potassium 3.6 MMOL/L (3.5-5.1)
[2020-10-30] MEDS: ONDANSETRON 4 MG/2 ML VIAL IV PRN (06:23)
[2020-10-30] MEDS: DEXTROSE 5% LACTATED RINGERS 1,000 ML IV SCH ×2 (09:15→17:53)
[2020-10-30] MEDS ORDERED: AZITHROMYCIN INJ 250 MG in SODIUM CHLORIDE 0.9% 250 ML IV SCH (09:30)
[2020-10-30] MEDS ORDERED: cefTRIAXone 1,000 MG in SODIUM CHLORIDE 0.9% 100 ML IV SCH (09:30)
[2020-10-30] MEDS: FLUTICASONE/SALMETEROL 250-50 DISKUS 14 DOSE INH SCH ×2 (11:00→22:40)
[2020-10-30] MEDS: DORZOLAMIDE/TIMOLOL OPH SOLN 10 ML BOTTLE BOTH EYES SCH ×2 (11:00→22:41)
[2020-10-30] MEDS: DILTIAZEM CD 300 MG CAPSULE PO SCH (11:01)
[2020-10-30] MEDS: POTASSIUM CHLORIDE 20 MEQ TABLET PO SCH (11:02)
[2020-10-30] MEDS: AMIODARONE 200 MG TABLET PO SCH (11:02)
[2020-10-30] MEDS: THYROID 60 MG TABLET PO SCH (11:02)
[2020-10-30] MEDS: PANTOPRAZOLE 40 MG TABLET PO SCH (11:02)
[2020-10-30] MEDS: MAGNESIUM OXIDE 400 MG TABLET PO SCH ×2 (11:02→22:39)
[2020-10-30] MEDS: APIXABAN 5 MG TABLET PO SCH ×2 (11:02→22:39)
[2020-10-30] MEDS: CETIRIZINE 10 MG TABLET PO SCH (11:03)
[2020-10-30] MEDS: ASPIRIN CHEW 81 MG TABLET PO SCH (11:03)
[2020-10-30] MEDS: CARBIDOPA/LEVODOPA CR 25-100 MG TABLET PO SCH ×3 (11:03→22:38)
[2020-10-30] MEDS: LOSARTAN 25 MG TABLET PO SCH (22:37)
[2020-10-30] MEDS: MONTELUKAST 10 MG TABLET PO SCH (22:39)
[2020-10-30] MEDS: DOXAZOSIN 1 MG TABLET PO SCH (22:40)
[2020-10-30] MEDS: FINASTERIDE 5 MG TABLET PO SCH (22:40)
[2020-10-31] MEDS: ALBUTEROL 2.5 MG/3 ML NEB RESP TX SCH ×4 (00:16→20:15)
[2020-10-31] MEDS: DEXTROSE 5% LACTATED RINGERS 1,000 ML IV SCH (01:54)
[2020-10-31 07:57] LABS: Basophils % 0.3 % (0.0-0.8); Eosinophils # 0.1 10*3/uL (0.0-0.87); Hematocrit 30.1 VOL% (42.0-52.0); Hemoglobin 9.9 GM/DL (14.0-18.0); Immature Granulocytes % 0.8 %; Immature Granulocytes Absolute 0.05 #; Lymphocytes # 0.6 10*3/uL (1.4-4.0); Lymphocytes % 10.2 % (21.2-54.2); Mean Corpuscular HGB Conc 32.9 GM/DL (32-36); Mean Corpuscular Volume 91.8 FL (87-102); Mean Platelet Volume 10.6 FL (9.6-12.0); Monocytes % 9.7 % (1.7-12.7); Platelet Count 161 T/CUMM (130-400); Red Blood Count 3.28 MC/CUMM (3.8-5.5)
[2020-10-31 08:14] LABS: Calcium 8.9 MG/DL (8.5-10.1); Osmolality,Calculated 274.8 MOS/KG (273-304); Potassium 3.1 MMOL/L (3.5-5.1)
[2020-10-31] MEDS: APIXABAN 5 MG TABLET PO SCH (08:56)
[2020-10-31] MEDS: ASPIRIN CHEW 81 MG TABLET PO SCH (08:56)
[2020-10-31] MEDS: DILTIAZEM CD 300 MG CAPSULE PO SCH (08:56)
[2020-10-31] MEDS: MAGNESIUM OXIDE 400 MG TABLET PO SCH ×2 (08:56→20:21)
[2020-10-31] MEDS: THYROID 60 MG TABLET PO SCH (08:56)
[2020-10-31] MEDS: PANTOPRAZOLE 40 MG TABLET PO SCH (08:56)
[2020-10-31] MEDS: CARBIDOPA/LEVODOPA CR 25-100 MG TABLET PO SCH (08:57)
[2020-10-31] MEDS: CETIRIZINE 10 MG TABLET PO SCH (08:57)
[2020-10-31] MEDS: AMIODARONE 200 MG TABLET PO SCH (08:57)
[2020-10-31] MEDS: FLUTICASONE/SALMETEROL 250-50 DISKUS 14 DOSE INH SCH ×2 (08:57→20:20)
[2020-10-31] MEDS: DORZOLAMIDE/TIMOLOL OPH SOLN 10 ML BOTTLE BOTH EYES SCH ×2 (08:57→20:20)
[2020-10-31] MEDS: POTASSIUM CHLORIDE 20 MEQ TABLET PO SCH (08:57)
[2020-10-31] MEDS: ENOXAPARIN 40 MG/0.4 ML SYRINGE SUBCUT SCH (09:43)
[2020-10-31] MEDS: POTASSIUM CHLORIDE RIDER 10 MEQ/100 ML PREMIX IV PRN ×4 (09:43→17:40)
[2020-10-31] MEDS: PIPERACILLIN/TAZOBACTAM 3,375 MG in SODIUM CHLORIDE 0.9% 100 ML IV SCH ×2 (11:55→20:16)
[2020-10-31] MEDS: LOSARTAN 25 MG TABLET PO SCH (20:21)
[2020-10-31] MEDS: DOXAZOSIN 1 MG TABLET PO SCH (20:21)
[2020-10-31] MEDS: MONTELUKAST 10 MG TABLET PO SCH (20:21)
[2020-11-01] MEDS: ALBUTEROL 2.5 MG/3 ML NEB RESP TX SCH ×4 (00:24→19:39)
[2020-11-01] MEDS: DEXTROSE 5% LACTATED RINGERS 1,000 ML IV SCH (01:55)
[2020-11-01] MEDS: PIPERACILLIN/TAZOBACTAM 3,375 MG in SODIUM CHLORIDE 0.9% 100 ML IV SCH ×3 (03:28→20:28)
[2020-11-01 07:55] LABS: Basophils % 0.5 % (0.0-0.8); Eosinophils # 0.1 10*3/uL (0.0-0.87); Eosinophils % 1.3 % (0.00-10.9); Hematocrit 34.3 VOL% (42.0-52.0); Immature Granulocytes % 1.6 %; Immature Granulocytes Absolute 0.12 #; Lymphocytes # 0.8 10*3/uL (1.4-4.0); Lymphocytes % 9.8 % (21.2-54.2); Mean Corpuscular HGB Conc 32.1 GM/DL (32-36); Mean Corpuscular Volume 91.2 FL (87-102); Monocytes % 10.5 % (1.7-12.7); Neutrophils % 76.3 % (38.7-73.9); Platelet Count 210 T/CUMM (130-400); Red Blood Count 3.76 MC/CUMM (3.8-5.5); Red Cell Distribution Width 13.1 % (9.3-17.3); White Blood Count 7.7 T/CUMM (4-12)
[2020-11-01 07:59] LABS: Calcium 8.9 MG/DL (8.5-10.1); Osmolality,Calculated 279.4 MOS/KG (273-304); Potassium 3.3 MMOL/L (3.5-5.1)
[2020-11-01] MEDS: FLUTICASONE/SALMETEROL 250-50 DISKUS 14 DOSE INH SCH ×2 (09:18→20:29)
[2020-11-01] MEDS: ENOXAPARIN 40 MG/0.4 ML SYRINGE SUBCUT SCH (09:18)
[2020-11-01] MEDS: DORZOLAMIDE/TIMOLOL OPH SOLN 10 ML BOTTLE BOTH EYES SCH ×2 (09:18→20:29)
[2020-11-01] MEDS: THYROID 60 MG TABLET PO SCH (09:20)
[2020-11-01] MEDS: MAGNESIUM OXIDE 400 MG TABLET PO SCH ×2 (09:20→20:25)
[2020-11-01] MEDS: AMIODARONE 200 MG TABLET PO SCH (09:20)
[2020-11-01] MEDS: ASPIRIN CHEW 81 MG TABLET PO SCH (09:20)
[2020-11-01] MEDS: PANTOPRAZOLE 40 MG TABLET PO SCH (09:21)
[2020-11-01] MEDS: CETIRIZINE 10 MG TABLET PO SCH (09:21)
[2020-11-01] MEDS: POTASSIUM CHLORIDE RIDER 10 MEQ/100 ML PREMIX IV PRN ×4 (11:02→19:02)
[2020-11-01] MEDS: LOSARTAN 25 MG TABLET PO SCH (20:25)
[2020-11-01] MEDS: DOXAZOSIN 1 MG TABLET PO SCH (20:25)
[2020-11-01] MEDS: MONTELUKAST 10 MG TABLET PO SCH (20:26)
[2020-11-01] MEDS: ENOXAPARIN 100 MG/ML SYRINGE SUBCUT SCH (20:27)
[2020-11-02] MEDS: ALBUTEROL 2.5 MG/3 ML NEB RESP TX SCH ×4 (00:45→20:15)
[2020-11-02] MEDS: DEXTROSE 5% LACTATED RINGERS 1,000 ML IV SCH ×2 (02:51→21:05)
[2020-11-02] MEDS: PIPERACILLIN/TAZOBACTAM 3,375 MG in SODIUM CHLORIDE 0.9% 100 ML IV SCH ×3 (03:00→21:07)
[2020-11-02 05:02] LABS: Basophils # 0.1 10*3/uL (0.0-0.2); Basophils % 0.8 % (0.0-0.8); Eosinophils # 0.1 10*3/uL (0.0-0.87); Eosinophils % 1.7 % (0.00-10.9); Hematocrit 34.9 VOL% (42.0-52.0); Hemoglobin 11.3 GM/DL (14.0-18.0); Immature Granulocytes % 4.4 %; Immature Granulocytes Absolute 0.36 #; Lymphocytes % 11.7 % (21.2-54.2); Mean Corpuscular HGB Conc 32.4 GM/DL (32-36); Mean Corpuscular Volume 91.1 FL (87-102); Mean Platelet Volume 11.2 FL (9.6-12.0); Neutrophils % 71.4 % (38.7-73.9); Platelet Count 238 T/CUMM (130-400); Red Blood Count 3.83 MC/CUMM (3.8-5.5); Red Cell Distribution Width 13.1 % (9.3-17.3); White Blood Count 8.3 T/CUMM (4-12)
[2020-11-02 05:20] LABS: Calcium 9.2 MG/DL (8.5-10.1); Osmolality,Calculated 285.1 MOS/KG (273-304); Potassium 3.3 MMOL/L (3.5-5.1)
[2020-11-02] MEDS: ENOXAPARIN 100 MG/ML SYRINGE SUBCUT SCH (09:32)
[2020-11-02] MEDS: FLUTICASONE/SALMETEROL 250-50 DISKUS 14 DOSE INH SCH ×2 (09:35→21:10)
[2020-11-02] MEDS: DORZOLAMIDE/TIMOLOL OPH SOLN 10 ML BOTTLE BOTH EYES SCH ×2 (09:35→21:10)
[2020-11-02] MEDS: POTASSIUM CHLORIDE 20 MEQ TABLET PO SCH (11:55)
[2020-11-02] MEDS: ASPIRIN CHEW 81 MG TABLET PO SCH (11:55)
[2020-11-02] MEDS: PANTOPRAZOLE 40 MG TABLET PO SCH (11:55)
[2020-11-02] MEDS: DOXAZOSIN 1 MG TABLET PO SCH ×2 (11:56→21:02)
[2020-11-02] MEDS: CARBIDOPA/LEVODOPA CR 25-100 MG TABLET PO SCH ×3 (11:56→21:03)
[2020-11-02] MEDS: MAGNESIUM OXIDE 400 MG TABLET PO SCH ×2 (11:56→21:02)
[2020-11-02] MEDS: DILTIAZEM CD 300 MG CAPSULE PO SCH (11:56)
[2020-11-02] MEDS: THYROID 60 MG TABLET PO SCH (11:57)
[2020-11-02] MEDS: APIXABAN 5 MG TABLET PO SCH ×2 (11:57→21:02)
[2020-11-02] MEDS: CETIRIZINE 10 MG TABLET PO SCH (11:57)
[2020-11-02] MEDS: AMIODARONE 200 MG TABLET PO SCH (11:58)
[2020-11-02] MEDS ORDERED: POTASSIUM CHLORIDE 20 MEQ TABLET PO ONE (13:56)
[2020-11-02] MEDS: LOSARTAN 25 MG TABLET PO SCH (21:02)
[2020-11-02] MEDS: MONTELUKAST 10 MG TABLET PO SCH (21:03)
[2020-11-02] MEDS: FINASTERIDE 5 MG TABLET PO SCH (21:03)
[2020-11-03] MEDS: ALBUTEROL 2.5 MG/3 ML NEB RESP TX SCH ×4 (00:54→19:56)
[2020-11-03] MEDS: PIPERACILLIN/TAZOBACTAM 3,375 MG in SODIUM CHLORIDE 0.9% 100 ML IV SCH (03:17)
[2020-11-03 06:46] LABS: Basophils % 0.5 % (0.0-0.8); Eosinophils # 0.3 10*3/uL (0.0-0.87); Eosinophils % 3.1 % (0.00-10.9); Hematocrit 34.1 VOL% (42.0-52.0); Hemoglobin 10.1 GM/DL (14.0-18.0); Immature Granulocytes % 4.6 %; Immature Granulocytes Absolute 0.39 #; Lymphocytes # 1.2 10*3/uL (1.4-4.0); Lymphocytes % 14.1 % (21.2-54.2); Mean Corpuscular HGB Conc 29.6 GM/DL (32-36); Mean Corpuscular Volume 96.3 FL (87-102); Mean Platelet Volume 10.9 FL (9.6-12.0); Monocytes % 6.9 % (1.7-12.7); Neutrophils % 70.8 % (38.7-73.9); Platelet Count 270 T/CUMM (130-400); Red Blood Count 3.54 MC/CUMM (3.8-5.5); Red Cell Distribution Width 13.2 % (9.3-17.3); White Blood Count 8.4 T/CUMM (4-12)
[2020-11-03 07:03] LABS: Calcium 9.1 MG/DL (8.5-10.1); Potassium 3.7 MMOL/L (3.5-5.1)
[2020-11-03 07:09] LABS: Atypical Lymphocytes Few; Band Neutrophils 1 % (0-10); Eosinophils 3 % (0-10); Lymphocytes 13 % (20-55); Segmented Neutrophils 75 % (50-85); Total Cells Counted 100
[2020-11-03 07:10] LABS: Hypochromasia 1+; Microcytosis Slight
[2020-11-03] MEDS: POTASSIUM CHLORIDE 20 MEQ TABLET PO SCH (08:13)
[2020-11-03] MEDS: ASPIRIN CHEW 81 MG TABLET PO SCH (08:13)
[2020-11-03] MEDS: MAGNESIUM OXIDE 400 MG TABLET PO SCH ×2 (08:13→20:51)
[2020-11-03] MEDS: DILTIAZEM CD 300 MG CAPSULE PO SCH (08:13)
[2020-11-03] MEDS: CETIRIZINE 10 MG TABLET PO SCH (08:13)
[2020-11-03] MEDS: APIXABAN 5 MG TABLET PO SCH ×2 (08:14→20:51)
[2020-11-03] MEDS: THYROID 60 MG TABLET PO SCH (08:14)
[2020-11-03] MEDS: CARBIDOPA/LEVODOPA CR 25-100 MG TABLET PO SCH ×3 (08:14→21:00)
[2020-11-03] MEDS: AMIODARONE 200 MG TABLET PO SCH (08:15)
[2020-11-03] MEDS: PANTOPRAZOLE 40 MG TABLET PO SCH (08:15)
[2020-11-03] MEDS: FLUTICASONE/SALMETEROL 250-50 DISKUS 14 DOSE INH SCH ×2 (08:16→20:52)
[2020-11-03] MEDS: DORZOLAMIDE/TIMOLOL OPH SOLN 10 ML BOTTLE BOTH EYES SCH ×2 (08:16→20:52)
[2020-11-03] MEDS: LOSARTAN 25 MG TABLET PO SCH (20:50)
[2020-11-03] MEDS: FINASTERIDE 5 MG TABLET PO SCH (20:51)
[2020-11-03] MEDS: MONTELUKAST 10 MG TABLET PO SCH (20:51)
[2020-11-03] MEDS: DOXAZOSIN 1 MG TABLET PO SCH (20:51)
[2020-11-03] MEDS: DEXTROSE 5% LACTATED RINGERS 1,000 ML IV SCH (20:58)
[2020-11-04] MEDS: ALBUTEROL 2.5 MG/3 ML NEB RESP TX SCH ×2 (05:00→07:18)
[2020-11-04 06:30] LABS: Basophils # 0.1 10*3/uL (0.0-0.2); Basophils % 0.8 % (0.0-0.8); Eosinophils # 0.4 10*3/uL (0.0-0.87); Eosinophils % 5.5 % (0.00-10.9); Hematocrit 32.2 VOL% (42.0-52.0); Hemoglobin 10.3 GM/DL (14.0-18.0); Immature Granulocytes % 5.1 %; Immature Granulocytes Absolute 0.36 #; Mean Corpuscular Volume 93.9 FL (87-102); Mean Platelet Volume 10.6 FL (9.6-12.0); Monocytes % 6.2 % (1.7-12.7); Neutrophils % 68.4 % (38.7-73.9); Platelet Count 248 T/CUMM (130-400); Red Blood Count 3.43 MC/CUMM (3.8-5.5); Red Cell Distribution Width 13.2 % (9.3-17.3); White Blood Count 7.1 T/CUMM (4-12)
[2020-11-04 06:54] LABS: Calcium 8.8 MG/DL (8.5-10.1); Potassium 3.9 MMOL/L (3.5-5.1)
[2020-11-04 07:05] LABS: Band Neutrophils 2 % (0-10); Eosinophils 4 % (0-10); Hypochromasia Slight; Lymphocytes 9 % (20-55); Microcytosis Slight; Platelet Estimate Adequate; Segmented Neutrophils 79 % (50-85); Total Cells Counted 100
[2020-11-04 07:54] VITALS: BP 129/67
[2020-11-04] MEDS: THYROID 60 MG TABLET PO SCH (09:01)
[2020-11-04] MEDS: CARBIDOPA/LEVODOPA CR 25-100 MG TABLET PO SCH (09:01)
[2020-11-04] MEDS: POTASSIUM CHLORIDE 20 MEQ TABLET PO SCH (09:02)
[2020-11-04] MEDS: DILTIAZEM CD 300 MG CAPSULE PO SCH (09:02)
[2020-11-04] MEDS: CETIRIZINE 10 MG TABLET PO SCH (09:02)
[2020-11-04] MEDS: MAGNESIUM OXIDE 400 MG TABLET PO SCH (09:02)
[2020-11-04] MEDS: PANTOPRAZOLE 40 MG TABLET PO SCH (09:02)
[2020-11-04] MEDS: APIXABAN 5 MG TABLET PO SCH (09:02)
[2020-11-04] MEDS: FLUTICASONE/SALMETEROL 250-50 DISKUS 14 DOSE INH SCH (09:02)
[2020-11-04] MEDS: AMIODARONE 200 MG TABLET PO SCH (09:02)
[2020-11-04] MEDS: DORZOLAMIDE/TIMOLOL OPH SOLN 10 ML BOTTLE BOTH EYES SCH (09:03)
[2020-11-04] MEDS: ASPIRIN CHEW 81 MG TABLET PO SCH (09:03)
== END 2020-11-04 09:59 | disposition home or self-care (01) | DRG 330 ==
LOC: N.OR 06:11 → N.SDSINP 06:12 → N.4E 12:32
PROVIDERS: ADMIT Surgery; ATTEND Surgery